=== PATIENT | female | born 1965 | race Caucasian/White ===

== ENCOUNTER 2021-06-08 20:49 | Emergency (ER) | payer BC, OTHER ==
[~2021-06-08] VITALS: Ht 162.6 cm; Wt 65.8 kg
[2021-06-08 20:59] VITALS: BP_SYST 132
[2021-06-08] MEDS ORDERED: ACETAMINOPHEN 500 MG TABLET PO ONE (23:45)
[2021-06-08 23:48] VITALS: BP_SYST 132
== END 2021-06-08 23:48 | disposition home or self-care (01) ==
LOC: SED 20:49
DX: S13.9XXA Sprain of joints and ligaments of unspecified parts of neck, initial encounter (principal); S09.90XA Unspecified injury of head, initial encounter; Z88.0 Allergy status to penicillin; W18.39XA Other fall on same level, initial encounter; Y93.89 Activity, other specified; Y92.89 Other specified places as the place of occurrence of the external cause; Y99.8 Other external cause status
CPT/HCPCS: 70450-TC; 72125-TC; 72170-TC; 73502; 76376; 99285

== ENCOUNTER 2023-08-30 16:32 | Emergency (ER) | payer BC ==
[2023-08-30 16:33] VITALS: BP_SYST 142; PULSE 74; RESP 18; TEMP 97.5; O2SAT 98
[2023-08-30 21:28] LABS: BASOPHILS % (AUTO) 0.4 % (0.0-2.0); EOSINOPHILS % (AUTO) 0.3 % (0.0-4.0); HEMATOCRIT 35.5 % (36-48); LYMPHOCYTES % (AUTO) 12.6 % (20.5-51.5); MEAN CORPUSCULAR HEMOGLOBIN 31 pg (27-31); MEAN CORPUSCULAR HGB CONC 34 % (32-36); MEAN CORPUSCULAR VOLUME 92 fL (79.0-98.0); MONOCYTES # (AUTO) 0.8 K/uL (0.0-1.0); NEUTROPHILS # (AUTO) 5.9 K/uL (1.8-7.7); NEUTROPHILS % (AUTO) 76.7 % (40.0-70.0); PLATELET COUNT (AUTO) 234 K/uL (130-430); RED BLOOD CELL COUNT(AUTO) 3.85 MIL/uL (4.2-6.2); RED CELL DISTRIBUTION WIDTH 12.7 % (9.0-15.0); WHITE BLOOD COUNT (AUTO) 7.7 K/uL (4.8-10.8)
[2023-08-30 21:36] LABS: ANION GAP 9 (5-15); CALCIUM 8.8 mg/dL (8.4-11.0); CARBON DIOXIDE 30 mmol/L (23-29); CHLORIDE 102 mmol/L (98-107); CREATININE 0.76 mg/dL (0.55-1.30); GFR AFRICAN AMERICAN 101 mL/min (>90); GLUCOSE 106 mg/dL (74-106); POTASSIUM 4.3 mmol/L (3.5-5.1); SODIUM SERUM 141 mmol/L (136-145); UREA NITROGEN, BLOOD 14 mg/dL (8-21)
[2023-08-30 21:42] LABS: GFR NON AFRICAN-AMERICAN 84 mL/min (>90)
[2023-08-30 21:43] LABS: ALANINE AMINOTRANSFERASE 16 U/L (12-78); ALBUMIN 4.3 g/dL (3.4-4.8); ASPARTATE AMINOTRANSFERASE 14 U/L (10-37); TOTAL BILIRUBIN 0.6 mg/dL (0.0-1.0); TOTAL PROTEIN, SERUM 7.9 g/dL (6.4-8.3)
[2023-08-30] MEDS ORDERED: KETOROLAC TROMETHAMINE 15 MG VIAL IVP ONE (23:30)
[2023-08-30] MEDS ORDERED: KETOROLAC TROMETHAMINE 30 MG VIAL ONE (23:43)
[2023-08-30] MEDS ORDERED: iohexoL 350 mgI/mL, 100 ML INFUS..BTL IV ONE (23:56)
[2023-08-31 00:03] LABS: BILIRUBIN,URINE NEGATIVE (NEGATIVE); BLOOD, URINE 1+ (NEGATIVE); CLARITY/URINE SL CLOUDY (CLEAR); COLOR,URINE YELLOW (YELLOW); GLUCOSE,URINE NEGATIVE (NEGATIVE); KETONES,URINE 1+ (NEGATIVE); LEUKOCYTE ESTERASE ,URINE 2+ (NEGATIVE); NITRITE, URINE NEGATIVE (NEGATIVE); PROTEIN URINE TRACE (NEGATIVE); UROBILINOGEN,URINE 0.2 (0.2-1.0)
[2023-08-31 00:17] LABS: WBC,URINE >100 /HPF (0-3)
[2023-08-31 00:18] LABS: BACTERIA,URINE MANY /HPF (None Seen)
[2023-08-31] MEDS ORDERED: cefTRIAXone 1 GM in D5W 50 ML IV ONE (02:45)
[2023-08-31] MEDS ORDERED: cefTRIAXone 1 GM VIAL ONE (03:00)
[2023-08-31] MEDS ORDERED: cefTRIAXone 1 GM IVPB PREMIX 50 ML IV ONE (03:00)
[2023-08-31] MEDS ORDERED: HYDR-3917 PO (04:23)
[2023-08-31] MEDS ORDERED: IBUP-1969 PO (04:23)
[2023-08-31] MEDS ORDERED: LEVO750T64 PO (04:23)
[2023-08-31 04:53] VITALS: BP_SYST 143; PULSE 74; RESP 18; TEMP 98.6; O2SAT 99
== END 2023-08-31 04:32 | disposition home or self-care (01) ==
LOC: SED 16:32
DX: J18.9 Pneumonia, unspecified organism (principal); R07.81 Pleurodynia; N39.0 Urinary tract infection, site not specified; Z88.0 Allergy status to penicillin; Z79.899 Other long term (current) drug therapy
CPT/HCPCS: 99285; 71275; 71045; 96375; 80053; 81000; 83880; 85025; 87040; 87086; 84484; 36415; 93005; 83605; 96365; 76376; J1885; J0696 ×2; Q9967